=== PATIENT | female | born 1980 | race African-American/Black ===

== ENCOUNTER 2021-04-24 06:36 | Inpatient (IN) | payer MEDICAID ==
[2021-04-24] MEDS ORDERED: Lidocaine 1% 50 ML MDV INJECT PRN (06:48)
[2021-04-24] MEDS ORDERED: Methylergonovine 0.2 MG/1 ML Amp IM PRN (06:48)
[2021-04-24] MEDS ORDERED: Ondansetron 4 MG/2 ML SDV IVPUSH PRN (06:48)
[2021-04-24] MEDS ORDERED: Nalbuphine 10 MG/1 ML Vial IVPUSH PRN (06:48)
[2021-04-24] MEDS ORDERED: Sodium Chloride 0.9% 10 ML Syringe FLUSH PRN (06:48)
[2021-04-24] MEDS ORDERED: Carboprost Tromethamine 250 MCG/1 ML Amp IM PRN (06:48)
[2021-04-24] MEDS ORDERED: Sodium Chloride 0.9% 2.5 ML Syringe FLUSH PRN (06:48)
[2021-04-24] MEDS ORDERED: Misoprostol 200 MCG Tab PO PRN (06:48)
[2021-04-24] MEDS ORDERED: Tranexamic Acid 1,000 MG in Sodium Chloride 0.9% 100 ML IV PRN (06:48)
[2021-04-24] MEDS ORDERED: Water For Irrigation,Sterile 1,000 ML Container IRR PRN (06:48)
[2021-04-24] MEDS ORDERED: Butorphanol 1 MG/ML SDV IVPUSH PRN (06:48)
[2021-04-24] MEDS ORDERED: Sodium Chloride 0.9% 10 ML SDV IV PRN (06:48)
[2021-04-24] MEDS ORDERED: Terbutaline 1 MG/ML SDV SUBCUT PRN (06:51)
[2021-04-24] MEDS ORDERED: Oxytocin/0.9 % Sodium Chloride 30 UNIT/500 ML BAG IV SCH ×2 (07:00)
[2021-04-24] MEDS: Lactated Ringers 1,000 ML IV SCH (07:54)
[2021-04-24] MEDS ORDERED: Misoprostol 50 MCG (1/2 of 100 MCG) Tab PO ONE (09:10)
[2021-04-24] MEDS ORDERED: Misoprostol 25 MCG (1/4 of 100 MCG) Tab VAG ONE (09:13)
[2021-04-24 09:34] LABS: BLOOD UREA NITROGEN,BUN 9 mg/dL (7.0-18.0); CARBON DIOXIDE,CO2 22.2 mmol/L (21.0-32.0); CHLORIDE,CL 104 mmol/L (98-107); GLUCOSE RANDOM 54 mg/dL (74-106); POTASSIUM,K 4.1 mmol/L (3.5-5.1); SODIUM,NA 137 mmol/L (136-145)
[2021-04-25] MEDS: Lactated Ringers 1,000 ML IV SCH ×2 (10:59→12:27)
[2021-04-25] MEDS ORDERED: Ropivacaine HCl/PF 200 ML ONE (11:00)
[2021-04-25] MEDS ORDERED: fentaNYL 100 MCG/2 ML SDV ONE (11:00)
--- NOTE | 2021-04-25 11:19 | PCM.PREANE ---
Preanesthetic Assessment - Anesthesia/Transfusion/Family Hx Anesthesia History: Prior Anesthesia Without Reaction Family History of Anesthesia Reaction: No Transfusion History: No Prior Transfusion(s) - Physical Assessment NPO Status Date: 04/25/21 NPO Status Time: 05:00 Height: 1.65 m Weight: 97.069 kg ASA Class: 2 - Lab Values: Laboratory Last Values WBC 7.69 K/uL (4.0-11.0) 04/24/21 07:15 RBC 3.17 M/uL (4.30-5.90) L 04/24/21 07:15 Hgb 9.2 g/dL (12.0-16.0) L 04/24/21 07:15 Hct 28.1 % (36.0-46.0) L 04/24/21 07:15 MCV 88.6 fL (80.0-98.0) 04/24/21 07:15 MCH 29.0 pg (27.0-32.0) 04/24/21 07:15 MCHC 32.7 g/dL (31.0-37.0) 04/24/21 07:15 RDW Std Deviation 45.4 fl (28.0-62.0) 04/24/21 07:15 RDW Coeff of [place] 14 % (11.0-15.0) 04/24/21 07:15 Plt Count 276 K/uL (150-400) 04/24/21 07:15 MPV 10.60 fL (7.40-12.00) 04/24/21 07:15 Nucleated RBC % 0.0 /100WBC 04/24/21 07:15 Nucleated RBCs # 0 K/uL 04/24/21 07:15 Sodium 137 mmol/L (136-145) 04/24/21 07:15 Potassium 4.1 mmol/L (3.5-5.1) 04/24/21 07:15 Chloride 104 mmol/L (98-107) 04/24/21 07:15 Carbon Dioxide 22.2 mmol/L (21.0-32.0) 04/24/21 07:15 BUN 9 mg/dL (7.0-18.0) 04/24/21 07:15 Creatinine 0.8 mg/dL (0.6-1.0) 04/24/21 07:15 Est Cr Clr Drug Dosing 84.95 mL/min 04/24/21 07:15 Estimated GFR (MDRD) > 60.0 ml/min 04/24/21 07:15 Glucose 54 mg/dL (74-106) L 04/24/21 07:15 Uric Acid 5.2 mg/dL (2.6-7.2) 04/24/21 07:15 Calcium 9.6 mg/dL (8.5-10.1) 04/24/21 07:15 Total Bilirubin 0.4 mg/dL (0.2-1.0) 04/24/21 07:15 AST 22 IU/L (15-37) 04/24/21 07:15 ALT 24 IU/L (14-63) 04/24/21 07:15 Alkaline Phosphatase 133 U/L (46-116) H 04/24/21 07:15 Total Protein 6.3 g/dL (6.4-8.2) L 04/24/21 07:15 Albumin 2.6 g/dL (3.4-5.0) L 04/24/21 07:15 Globulin 3.7 g/dL (2.6-4.0) 04/24/21 07:15 Albumin/Globulin Ratio 0.7 (0.9-1.6) L 04/24/21 07:15 Ur Random Creatinine 20.7 mg/dL 04/24/21 10:30 U Random Total Protein <6.0 mg/dL (<11.9) 04/24/21 10:30 Protein/Creatinin Ratio TNP 04/24/21 10:30 SARS-CoV-2 RNA (LITZY) NEGATIVE (NEGATIVE) 04/24/21 06:40 Blood Type O POSITIVE 04/24/21 07:15 Antibody Screen NEGATIVE 04/24/21 07:15 - Allergies Allergies/Adverse Reactions: Allergies Allergy/AdvReac Type Severity Reaction Status Date / Time shellfish derived Allergy Swollen Verified 04/13/21 14:03 Tongue - Acknowledgements Anesthesia Type Planned: Epidural Pt an Appropriate Candidate for the Planned Anesthesia: Yes Alternatives and Risks of Anesthesia Discussed w Pt/Guardian: Yes Pt/Guardian Understands and Agrees with Anesthesia Plan: Yes PreAnesthesia Questionnaire - Past Health History Medical/Surgical History: Denies Medical/Surgical History Genitourinary History: Reports: None [employer] History: Reports: , Therapeutic Musculoskeletal History: Reports: Arthritis, RA - Past Surgical History Head Surgeries/Procedures: Reports: None Female Surgical History: Reports: Breast Implant Musculoskeletal Surgical History: Reports: None - SUBSTANCE USE Tobacco Use Status *Q: Never Tobacco User Tobacco Use Within Last Twelve Months: No Second Hand Smoke Exposure: No Recreational Drug Use History: No - HOME MEDS Home Medications: Home Meds No122/Iron/Folic Acid [ Multi Tablet] 1 each PO DAILY 04/24/21 [History] - CURRENT (IN HOUSE) MEDS Current Meds: Current Medications Butorphanol Tartrate (Butorphanol 1 Mg/Ml Sdv) 1 mg IVPUSH Q1H PRN PRN Reason: Pain (severe 7-10) Carboprost Tromethamine (Carboprost Tromethamine 250 Mcg/1 Ml Amp) 250 mcg IM ASDIRECTED PRN PRN Reason: Post Hemorrhage Oxytocin/Sodium Chloride (Oxytocin 30 Unit/500 Ml-Ns) 30 unit in 500 mls @ 999 mls/hr IV TITRATE TACOS Tranexamic Acid 1,000 mg/ (Sodium Chloride) 110 mls @ 660 mls/hr IV ONETIME PRN PRN Reason: Bleeding Lactated Ringer's (Ringers, Lactated) 1,000 mls @ 150 mls/hr IV ASDIRECTED TACOS Last Admin: 04/25/21 10:59 Dose: 999 mls/hr Documented by: Oxytocin/Sodium Chloride (Oxytocin 30 Unit/500 Ml-Ns) 30 unit in 500 mls @ 2 mls/hr IV TITRATE TACOS; Protocol Last Titration: 04/25/21 09:49 Dose: 12 munits/min, 12 mls/hr Documented by: Lidocaine HCl (Lidocaine 1% 50 Ml Mdv) 50 ml INJECT ONETIME PRN PRN Reason: Laceration repair Methylergonovine Maleate (Methylergonovine 0.2 Mg/1 Ml Amp) 0.2 mg IM ASDIRECTED PRN PRN Reason: Post Hemorrhage Misoprostol (Misoprostol 200 Mcg Tab) 200 mcg PO ONETIME PRN PRN Reason: Post Hemorrhage Nalbuphine HCl (Nalbuphine 10 Mg/1 Ml Vial) 10 mg IVPUSH Q1H PRN PRN Reason: Pain (severe 7-10) Ondansetron HCl (Ondansetron 4 Mg/2 Ml Sdv) 4 mg IVPUSH Q6H PRN PRN Reason: Nausea/Vomiting Sodium Chloride (Sodium Chloride 0.9% 10 Ml Syringe) 10 ml FLUSH ASDIRECTED PRN PRN Reason: Keep Vein Open Sodium Chloride (Sodium Chloride 0.9% 2.5 Ml Syringe) 2.5 ml FLUSH ASDIRECTED PRN PRN Reason: Keep Vein Open Sodium Chloride (Sodium Chloride 0.9% 10 Ml Sdv) 10 ml IV ASDIRECTED PRN PRN Reason: IV Use Sterile Water (Water For Irrigation,Sterile 1,000 Ml Container) 1,000 ml IRR ASDIRECTED PRN PRN Reason: delivery Terbutaline Sulfate (Terbutaline 1 Mg/Ml Sdv) 0.25 mg SUBCUT ASDIRECTED PRN PRN Reason: Tacysystole Discontinued Medications Fentanyl (Fentanyl 100 Mcg/2 Ml Sdv) Confirm Administered Dose 200 mcg .ROUTE .STK-MED ONE Stop: 04/25/21 11:01 Ropivacaine (Naropin 0.2%) Confirm Administered Dose 200 mls @ as directed .ROUTE .STK-MED ONE Stop: 04/25/21 11:01 Misoprostol (Misoprostol 25 Mcg (1/4 Of 100 Mcg) Tab) 25 mcg VAG ONETIME ONE Stop: 04/24/21 09:14 Last Admin: 04/24/21 09:30 Dose: 25 mcg Documented by:
[2021-04-25] MEDS ORDERED: Phenylephrine/Normal Saline 100 MCG/ML 10 ML Syringe IVPUSH PRN (11:23)
[2021-04-25] MEDS ORDERED: ePHEDrine 50 MG/ML SDV IVPUSH PRN (11:23)
--- NOTE | 2021-04-25 11:23 | PCM.PRNOTE ---
- Free Text/Narrative Note: Anes Note Patient requests epidural for L&D. Sitting position. Level L2-L3 midline approach. Sterile techique. Chloraprep scrub to lumbar area. Sterile fenestrated drape applied. Epidural space easily achieved single attempt using CLARA technique. CLARA at 3 cm. Cath threaded 5 cm with ease. Cath secured a t skin using sterile clear adhesive dressing. Test 1110 3 cc 1.5% lido with epi negative. 1108 Load 10 cc 0.2% ropivicaine with 1 mcg cc fentanyl in slow divided doses. 1112Pump started with 190 cc same solution. Rate is 8 cc hr with 6cc q 20 min prn bolus. Jose well. Time with patient [id number] Beck Phelps [employer]
[2021-04-25] MEDS ORDERED: Lanolin 100% Cream 7 GM Tube TOP PRN (14:33)
[2021-04-25] MEDS ORDERED: Acetaminophen 500 MG Tab PO PRN ×2 (14:33)
[2021-04-25] MEDS ORDERED: Benzocaine/Menthol 20%-0.5% Spray 78 GM Cannister TOP PRN (14:33)
[2021-04-25] MEDS ORDERED: Witch Hazel Medicated Pads 40/Jar TOP PRN (14:33)
[2021-04-25] MEDS ORDERED: Ibuprofen 400 MG Tab PO PRN (14:33)
[2021-04-25] MEDS ORDERED: oxyCODONE 5 MG Tab PO PRN (14:33)
[2021-04-25] MEDS ORDERED: Bisacodyl 10 MG Supp RECTAL PRN (14:33)
[2021-04-25] MEDS ORDERED: Docusate Sodium 100 MG Cap PO PRN (14:33)
--- NOTE | 2021-04-25 14:41 | PCM.DEL ---
L & D Note - General Info Date of Service: 04/25/21 Mother's Due Date: 05/02/21 - Delivery Note Labor: Augmented by ARM, Induced by Oxytocin Cervical Ripening Method: Misoprostil Delivery Outcome: Livebirth Delivery Method: Spontaneous Vaginal Delivery-Single Presentation: Left Occiput Anterior (FABIOLA) Nuchal Cord: None Anesthesia Type: Epidural Amniotic Fluid Description: Clear Episiotomy Type: None Laceration: None Placenta: Spontaneous Cord: 3 Vessels Estimated Blood Loss: 300 Resuscitation Needed: No Score 1 min: 9 Score 5 min: 9 Second Stage Interventions: Reports: Pushing Effectively Delivery Comments (Free Text/Narrative):: Live female delivered at 1412 9/9 weight 2810g - General Info Date of Service: 04/25/21 - Patient Data Weight - Most Recent: 97.069 kg I&O - Last 24 Hours: Intake & Output 04/24/21 04/25/21 04/25/21 22:59 06:59 14:59 Intake Total 1107 Balance 1107 Med Orders - Current: Current Medications Carboprost Tromethamine (Carboprost Tromethamine 250 Mcg/1 Ml Amp) 250 mcg IM ASDIRECTED PRN PRN Reason: Post Hemorrhage Ephedrine Sulfate (Ephedrine 50 Mg/Ml Sdv) 10 mg IVPUSH Q5M PRN PRN Reason: Hypotension Oxytocin/Sodium Chloride (Oxytocin 30 Unit/500 Ml-Ns) 30 unit in 500 mls @ 999 mls/hr IV TITRATE TACOS Tranexamic Acid 1,000 mg/ (Sodium Chloride) 110 mls @ 660 mls/hr IV ONETIME PRN PRN Reason: Bleeding Lactated Ringer's (Ringers, Lactated) 1,000 mls @ 150 mls/hr IV ASDIRECTED TACOS Last Admin: 04/25/21 12:27 Dose: 150 mls/hr Documented by: Oxytocin/Sodium Chloride (Oxytocin 30 Unit/500 Ml-Ns) 30 unit in 500 mls @ 2 mls/hr IV TITRATE TACOS; Protocol Last Titration: 04/25/21 12:25 Dose: 14 munits/min, 14 mls/hr Documented by: Lidocaine HCl (Lidocaine 1% 50 Ml Mdv) 50 ml INJECT ONETIME PRN PRN Reason: Laceration repair Methylergonovine Maleate (Methylergonovine 0.2 Mg/1 Ml Amp) 0.2 mg IM ASDIRECTED PRN PRN Reason: Post Hemorrhage Misoprostol (Misoprostol 200 Mcg Tab) 200 mcg PO ONETIME PRN PRN Reason: Post Hemorrhage Ondansetron HCl (Ondansetron 4 Mg/2 Ml Sdv) 4 mg IVPUSH Q6H PRN PRN Reason: Nausea/Vomiting Phenylephrine HCl (Phenylephrine/Normal Saline 100 Mcg/Ml 10 Ml Syringe) 0.1 mg IVPUSH Q5M PRN PRN Reason: Hypotension Sterile Water (Water For Irrigation,Sterile 1,000 Ml Container) 1,000 ml IRR ASDIRECTED PRN PRN Reason: delivery Terbutaline Sulfate (Terbutaline 1 Mg/Ml Sdv) 0.25 mg SUBCUT ASDIRECTED PRN PRN Reason: Tacysystole Discontinued Medications Butorphanol Tartrate (Butorphanol 1 Mg/Ml Sdv) 1 mg IVPUSH Q1H PRN PRN Reason: Pain (severe 7-10) Fentanyl (Fentanyl 100 Mcg/2 Ml Sdv) Confirm Administered Dose 200 mcg .ROUTE . STK-MED ONE Stop: 04/25/21 11:01 Ropivacaine (Naropin 0.2%) Confirm Administered Dose 200 mls @ as directed .ROUTE .STK-MED ONE Stop: 04/25/21 11:01 Misoprostol (Misoprostol 25 Mcg (1/4 Of 100 Mcg) Tab) 25 mcg VAG ONETIME ONE Stop: 04/24/21 09:14 Last Admin: 04/24/21 09:30 Dose: 25 mcg Documented by: Nalbuphine HCl (Nalbuphine 10 Mg/1 Ml Vial) 10 mg IVPUSH Q1H PRN PRN Reason: Pain (severe 7-10) Sodium Chloride (Sodium Chloride 0.9% 10 Ml Syringe) 10 ml FLUSH ASDIRECTED PRN PRN Reason: Keep Vein Open Sodium Chloride (Sodium Chloride 0.9% 2.5 Ml Syringe) 2.5 ml FLUSH ASDIRECTED PRN PRN Reason: Keep Vein Open Sodium Chloride (Sodium Chloride 0.9% 10 Ml Sdv) 10 ml IV ASDIRECTED PRN PRN Reason: IV Use - Problem List & Annotations (1) Vaginal delivery SNOMED Code(s): 977607056 Code(s): O80 - ENCOUNTER FOR FULL-TERM UNCOMPLICATED DELIVERY Status: Acute Current Visit: Yes (2) Gestational hypertension SNOMED Code(s): 378950569 Code(s): O13.9 - GESTATIONAL HTN W/O SIGNIFICANT PROTEINURIA, UNSP TRIMESTER Status: Acute Current Visit: Yes Qualifiers: Trimester: third trimester Qualified Code(s): O13.3 - Gestational [-induced] hypertension without significant proteinuria, third trimester - Problem List Review Problem List Initiated/Reviewed/Updated: Yes - My Orders Last 24 Hours: My Active Orders 04/25/21 14:33 Patient Status [ADT] Routine May Shower [RC] ASDIRECTED Up ad Funmi [RC] ASDIRECTED Vital Signs [RC] PER UNIT ROUTINE Acetaminophen [Tylenol Extra Strength] 1,000 mg PO Q4H PRN Acetaminophen [Tylenol Extra Strength] 500 mg PO Q4H PRN Benzocaine/Menthol [Dermoplast Pain Relief 20%-0.5% [place]] 78 gm TOP ASDIRECTED PRN Docusate Sodium [Colace] 100 mg PO Q12H PRN Ibuprofen [Motrin] 400 mg PO Q4H PRN Ibuprofen [Motrin] 800 mg PO Q6H PRN Lanolin [Lansinoh HPA] See Dose Instructions TOP ASDIRECTED PRN bisacodyL [Dulcolax] 10 mg RECTAL ONETIME PRN oxyCODONE 5 mg PO Q2H PRN witch Swetha [Tucks] 1 pad TOP ASDIRECTED PRN Assess Lochia [WOMSER] Per Unit Routine Assess Uterine Involution [WOMSER] Per Unit Routine Peripheral IV Discontinue [OM.PC] Routine Resuscitation Status Routine 04/26/21 05:11 HEMOGLOBIN/HEMATOCRIT,HH [HEME] Timed - Assessment Assessment:: 40yo s/p @ 39wks Rubella Immune GHTN Opositive FGR - Plan Plan:: Routine care
[2021-04-25] MEDS: Ibuprofen 800 MG Tab PO PRN (17:43)
[2021-04-26] MEDS: Ibuprofen 800 MG Tab PO PRN ×2 (00:58→10:53)
--- NOTE | 2021-04-26 05:58 | PCM.PNPP ---
- General Info Date of Service: 04/26/21 Subjective Update: 40yo P4 s/p PPD1 ambulating , voiding , breast and bottle feeding Normal lochia Functional Status: Reports: Pain Controlled, Tolerating Diet, Ambulating, Urinating - Review of Systems General: Reports: No Symptoms HEENT: Reports: No Symptoms Pulmonary: Reports: No Symptoms Cardiovascular: Reports: No Symptoms Gastrointestinal: Reports: No Symptoms Genitourinary: Reports: No Symptoms Musculoskeletal: Reports: No Symptoms Skin: Reports: No Symptoms Neurological: Reports: No Symptoms Psychiatric: Reports: No Symptoms - General Info Date of Service: 04/26/21 - Patient Data Vital Signs - Most Recent: Last Vital Signs Temp 36.3 C 04/26/21 05:25 Pulse 85 04/26/21 05:25 Resp 17 04/26/21 05:25 BP 144/85 H 04/26/21 05:25 Pulse Ox 98 04/26/21 05:25 Weight - Most Recent: 97.069 kg I&O - Last 24 Hours: Intake & Output 04/25/21 04/25/21 04/26/21 14:59 22:59 06:59 Intake Total 1257 500 Output Total Balance 1273 500 Med Orders - Current: Current Medications Acetaminophen (Acetaminophen 500 Mg Tab) 500 mg PO Q4H PRN PRN Reason: Pain (mild 1-3) Acetaminophen (Acetaminophen 500 Mg Tab) 1,000 mg PO Q4H PRN PRN Reason: Pain (mild 1-3) Benzocaine/Menthol (Benzocaine/Menthol 20%-0.5% [place] 78 Gm Cannister) 78 gm TOP ASDIRECTED PRN PRN Reason: Perineal Comfort Measure Last Admin: 04/25/21 15:53 Dose: 1 bottle Documented by: Bisacodyl (Bisacodyl 10 Mg Supp) 10 mg RECTAL ONETIME PRN PRN Reason: Constipation Carboprost Tromethamine (Carboprost Tromethamine 250 Mcg/1 Ml Amp) 250 mcg IM ASDIRECTED PRN PRN Reason: Post Hemorrhage Docusate Sodium (Docusate Sodium 100 Mg Cap) 100 mg PO Q12H PRN PRN Reason: Constipation Emollient Ointment (Lanolin 100% Cream 7 Gm Tube) 0 gm TOP ASDIRECTED PRN PRN Reason: Sore Nipples Last Admin: 04/25/21 15:53 Dose: 1 applic Documented by: Ephedrine Sulfate (Ephedrine 50 Mg/Ml Sdv) 10 mg IVPUSH Q5M PRN PRN Reason: Hypotension Oxytocin/Sodium Chloride (Oxytocin 30 Unit/500 Ml-Ns) 30 unit in 500 mls @ 999 mls/hr IV TITRATE TACOS Tranexamic Acid 1,000 mg/ (Sodium Chloride) 110 mls @ 660 mls/hr IV ONETIME PRN PRN Reason: Bleeding Lactated Ringer's (Ringers, Lactated) 1,000 mls @ 150 mls/hr IV ASDIRECTED TACOS Last Admin: 04/25/21 12:27 Dose: 150 mls/hr Documented by: Oxytocin/Sodium Chloride (Oxytocin 30 Unit/500 Ml-Ns) 30 unit in 500 mls @ 2 mls/hr IV TITRATE TACOS; Protocol Last Titration: 04/25/21 14:12 Dose: 999 munits/min, 999 mls/hr Documented by: Ibuprofen (Ibuprofen 400 Mg Tab) 400 mg PO Q4H PRN PRN Reason: Pain (mild 1-3) Ibuprofen (Ibuprofen 800 Mg Tab) 800 mg PO Q6H PRN PRN Reason: Pain (mild 1-3) Last Admin: 04/26/21 00:58 Dose: 800 mg Documented by: Lidocaine HCl (Lidocaine 1% 50 Ml Mdv) 50 ml INJECT ONETIME PRN PRN Reason: Laceration repair Methylergonovine Maleate (Methylergonovine 0.2 Mg/1 Ml Amp) 0.2 mg IM ASDIRECTED PRN PRN Reason: Post Hemorrhage Misoprostol (Misoprostol 200 Mcg Tab) 200 mcg PO ONETIME PRN PRN Reason: Post Hemorrhage Ondansetron HCl (Ondansetron 4 Mg/2 Ml Sdv) 4 mg IVPUSH Q6H PRN PRN Reason: Nausea/Vomiting Oxycodone HCl (Oxycodone 5 Mg Tab) 5 mg PO Q2H PRN PRN Reason: Pain (severe 7-10) Phenylephrine HCl (Phenylephrine/Normal Saline 100 Mcg/Ml 10 Ml Syringe) 0.1 mg IVPUSH Q5M PRN PRN Reason: Hypotension Sterile Water (Water For Irrigation,Sterile 1,000 Ml Container) 1,000 ml IRR ASDIRECTED PRN PRN Reason: delivery Terbutaline Sulfate (Terbutaline 1 Mg/Ml Sdv) 0.25 mg SUBCUT ASDIRECTED PRN PRN Reason: Tacysystole Witch Swetha (Witch Swetha Medicated Pads 40/Jar) 1 pad TOP ASDIRECTED PRN PRN Reason: comfort care Last Admin: 04/25/21 15:53 Dose: 1 pad Documented by: Discontinued Medications Butorphanol Tartrate (Butorphanol 1 Mg/Ml Sdv) 1 mg IVPUSH Q1H PRN PRN Reason: Pain (severe 7-10) Fentanyl (Fentanyl 100 Mcg/2 Ml Sdv) Confirm Administered Dose 200 mcg .ROUTE .STK-MED ONE Stop: 04/25/21 11:01 Last Admin: 04/25/21 20:26 Dose: Not Given Documented by: Ropivacaine (Naropin 0.2%) Confirm Administered Dose 200 mls @ as directed .ROUTE .STK-MED ONE Stop: 04/25/21 11:01 Last Admin: 04/25/21 20:26 Dose: Not Given Documented by: Misoprostol (Misoprostol 25 Mcg (1/4 Of 100 Mcg) Tab) 25 mcg VAG ONETIME ONE Stop: 04/24/21 09:14 Last Admin: 04/24/21 09:30 Dose: 25 mcg Documented by: Nalbuphine HCl (Nalbuphine 10 Mg/1 Ml Vial) 10 mg IVPUSH Q1H PRN PRN Reason: Pain (severe 7-10) Sodium Chloride (Sodium Chloride 0.9% 10 Ml Syringe) 10 ml FLUSH ASDIRECTED PRN PRN Reason: Keep Vein Open Sodium Chloride (Sodium Chloride 0.9% 2.5 Ml Syringe) 2.5 ml FLUSH ASDIRECTED PRN PRN Reason: Keep Vein Open Sodium Chloride (Sodium Chloride 0.9% 10 Ml Sdv) 10 ml IV ASDIRECTED PRN PRN Reason: IV Use - Infant Interaction Support Person: Significant Other - Recovery Exam Fundal Tone: Firm Fundal Level: 1 Fingerbreadths Below Umbilicus Fundal Placement: Midline Lochia Amount: Scant, Small Lochia Color: Rubra/Red Perineum Description: Intact, Minimal Bruising/Swelling Episiotomy/Laceration: None Bladder Status: Voiding Urinary Elimination: Voided - Exam General: Alert HEENT: Pupils Equal Neck: Supple Lungs: Clear to Auscultation Cardiovascular: Regular Rate, Regular Rhythm GI/Abdominal Exam: Normal Bowel Sounds Neurological: No New Focal Deficit Psy/Mental Status: Alert - Problem List & Annotations (1) Vaginal delivery SNOMED Code(s): 688678542 Code(s): O80 - ENCOUNTER FOR FULL-TERM UNCOMPLICATED DELIVERY Status: Acute Current Visit: Yes (2) Gestational hypertension SNOMED Code(s): 152890270 Code(s): O13.9 - GESTATIONAL HTN W/O SIGNIFICANT PROTEINURIA, UNSP TRIMESTER Status: Acute Current Visit: Yes Qualifiers: Trimester: third trimester Qualified Code(s): O13.3 - Gestational [-induced] hypertension without significant proteinuria, third trimester - Problem List Review Problem List Initiated/Reviewed/Updated: No - My Orders Last 24 Hours: My Active Orders 04/25/21 Breakfast Regular Diet [DIET] 04/25/21 14:33 Patient Status [ADT] Routine May Shower [RC] ASDIRECTED Up ad Funmi [RC] ASDIRECTED Vital Signs [RC] PER UNIT ROUTINE Acetaminophen [Tylenol Extra Strength] 1,000 mg PO Q4H PRN Acetaminophen [Tylenol Extra Strength] 500 mg PO Q4H PRN Benzocaine/Menthol [Dermoplast Pain Relief 20%-0.5% [place]] 78 gm TOP A SDIRECTED PRN Docusate Sodium [Colace] 100 mg PO Q12H PRN Ibuprofen [Motrin] 400 mg PO Q4H PRN Ibuprofen [Motrin] 800 mg PO Q6H PRN Lanolin [Lansinoh HPA] See Dose Instructions TOP ASDIRECTED PRN bisacodyL [Dulcolax] 10 mg RECTAL ONETIME PRN oxyCODONE 5 mg PO Q2H PRN witch Swetha [Tucks] 1 pad TOP ASDIRECTED PRN Assess Lochia [WOMSER] Per Unit Routine Assess Uterine Involution [WOMSER] Per Unit Routine Peripheral IV Discontinue [OM.PC] Routine Resuscitation Status Routine 04/26/21 05:11 HEMOGLOBIN/HEMATOCRIT,HH [HEME] Routine - Assessment Assessment:: 40yo s/p @ 39wks , PPD1 GHTN - BP mild range , denies headache , RUQ pain and BV - Plan Plan:: Routine care Pain control vitamin Discharge home today if baby discharged , Follow up in 1 week for BP check
--- NOTE | 2021-04-26 06:03 | PCM48HPAN ---
Post Anesthesia Note - EVALUATION WITHIN 48HRS OF ANESTHETIC Vital Signs in Normal Range: Yes Patient Participated in Evaluation: Yes Respiratory Function Stable: Yes Airway Patent: Yes Cardiovascular Function Stable: Yes Hydration Status Stable: Yes Pain Control Satisfactory: Yes Nausea and Vomiting Control Satisfactory: Yes Mental Status Recovered: Yes Vital Signs: Last Vital Signs Temp 36.3 C 04/26/21 05:25 Pulse 85 04/26/21 05:25 Resp 17 04/26/21 05:25 BP 144/85 H 04/26/21 05:25 Pulse Ox 98 04/26/21 05:25
--- NOTE | 2021-04-26 07:14 | OR ---
SURGEON: TATYANA FRANCES DATE OF PROCEDURE: 04/25/2021 PREOPERATIVE DIAGNOSES: A 40-year-old G5, P3-0-1-3 at 39 weeks, admitted for induction of labor secondary to intrauterine growth restriction and also intrapartum gestational hypertension. POSTOPERATIVE DIAGNOSES: A 40-year-old G5, P3-0-1-3 at 39 weeks, admitted for induction of labor secondary to intrauterine growth restriction and also intrapartum gestational hypertension. PROCEDURE: Normal spontaneous vaginal delivery. ESTIMATED BLOOD LOSS: 300. INTRAVENOUS FLUID: Pitocin running. NOTES AND FINDINGS: Live female delivered at 1412, score of 9 and 9. Weight is 2810 g. BRIEF HISTORY ABOUT THE PATIENT: She is a 40-year-old G5, P3-0-1-3 who was being followed for growth restriction. She had abdominal circumference less than 3rd percentile and she had normal Dopplers. She was counseled for induction of labor secondary to this, which she initially rescheduled and she was brought in for induction of labor. With induction of labor, she initially started with Pitocin but was switched to Cytotec because she was about 1, 30, and -3. She received 1 dose of Cytotec. Then, she got Pitocin. She got all the way up to 20. She was still with the same exam. The patient was offered CRB and declined. She made changes to about 2 cm to 3 cm. She was offered AROM, which she declined. At that point, the patient had tachycardia. At this point, Pitocin was switched off and was restarted. Then, she agreed for AROM. After AROM, the patient's Pitocin was increased, and, she became fully dilated. With patient being fully dilated, she was encouraged to push. PROCEDURE IN DETAIL: With good pushing effort, she delivered the head, subsequently by the anterior and posterior shoulder. The body of the infant was delivered. Infant was placed on maternal abdomen. Delayed cord clamping was observed. Cord blood gases were obtained. Placenta was delivered via controlled cord traction. Perineum was inspected, noted to be intact. Pitocin was running at this time. She was left in Labor and Delivery in stable condition. SHAYY / DORIS /[id number] [facility]
== END 2021-04-26 18:06 | disposition home or self-care (01) | DRG 807 ==
LOC: MW.OBCHECK 06:36 → MW.OB 06:38 → MW.OBCHECK 06:47 → MW.OB 06:48 → OBSVTOIN 04-25 14:33 → MW.OB 04-25 17:00
PROVIDERS: ADMIT Obstetrics & Gynecology; ATTEND Obstetrics & Gynecology
PROC: 10E0XZZ Delivery of Products of Conception, External Approach (ICD-10-PCS; principal; 2021-04-25)
PROC: 10907ZC Drainage of Amniotic Fluid, Therapeutic from Products of Conception, Via Natural or Artificial Opening (ICD-10-PCS; 2021-04-25)
PROC: 3E033VJ Introduction of Other Hormone into Peripheral Vein, Percutaneous Approach (ICD-10-PCS; 2021-04-25)
PROC: 3E0P7VZ Introduction of Hormone into Female Reproductive, Via Natural or Artificial Opening (ICD-10-PCS; 2021-04-25)
PROC: 3E0R3BZ Introduction of Anesthetic Agent into Spinal Canal, Percutaneous Approach (ICD-10-PCS; 2021-04-25)
PROC: 4A1HXCZ Monitoring of Products of Conception, Cardiac Rate, External Approach (ICD-10-PCS; 2021-04-25)
PROC: 00HU33Z Insertion of Infusion Device into Spinal Canal, Percutaneous Approach (ICD-10-PCS; 2021-04-25)
DX: O36.5930 Maternal care for other known or suspected poor fetal growth, third trimester, not applicable or unspecified (principal); Z37.0 Single live birth; O13.4 Gestational [pregnancy-induced] hypertension without significant proteinuria, complicating childbirth; Z3A.39 39 weeks gestation of pregnancy; Z91.013 Allergy to seafood; Z20.822 Contact with and (suspected) exposure to COVID-19
CPT/HCPCS: 36415; 51702; 59025; 59409; 80053; 82570; 84156; 84550; 85014; 85018; 85027; 86592; 86850; 86900; 86901; A9270-GY; J2590; J3010; J7120; U0002

== ENCOUNTER 2023-09-02 00:09 | Emergency (ER) | payer MEDICAID ==
[2023-09-02] MEDS ORDERED: Acetaminophen 325 MG Tab PO ONE (02:12)
[2023-09-02] MEDS ORDERED: Amoxicillin 500 MG Cap PO ONE (02:13)
== END 2023-09-02 02:57 | disposition home or self-care (01) ==
LOC: MW.ED 00:09
DX: K08.89 Other specified disorders of teeth and supporting structures (principal); Z91.013 Allergy to seafood
CPT/HCPCS: 99283; A9270